=== PATIENT | male | born 1960 ===

== ENCOUNTER 2018-03-03 12:20 | Outpatient (CLI) | payer OTHER ==
[~2018-03-03] VITALS: Ht 172.7 cm; Wt 77.1 kg
== END 2018-03-03 12:40 | disposition home or self-care (01) ==
LOC: OFIC 805 12:20
DX: T16.1XXA Foreign body in right ear, initial encounter (principal); X58.XXXA Exposure to other specified factors, initial encounter; Y93.89 Activity, other specified; Y92.89 Other specified places as the place of occurrence of the external cause; Y99.8 Other external cause status